=== PATIENT | male | born 1980 | race Caucasian/White ===

== ENCOUNTER 2017-05-20 13:16 | Observation (INO) ==
--- NOTE | 2017-05-20 13:40 | Emergency Department Note ---
Disposition Clinical Impression: Chest pain Qualifiers: Chest pain type: unspecified Qualified Code(s): R07.9 - Chest pain, unspecified Disposition: Admitted As Inpatient Condition: Good Referrals: Jay Saunders DO [Primary Care Provider] - Forms: ED Satisfaction Letter Time of Disposition: 15:37 Chest Pain HPI - General Chief Complaint: ED Chest Pain Stated Complaint: Chest discomfort Time Seen by Provider: 05/20/17 13:36 Source: patient Limitations: no limitations Vital Signs Reviewed: Yes Nursing Notes Reviewed: Yes - History of Present Illness HPI Narrative: 37-year-old previous history of an MN and stent placement who comes in complaining of left-sided chest pain off and on for last 3 days. Pt complaint: chest pain Onset (ago): day(s) Duration: intermittent Onset: during rest Pain Location: left chest Severity: mild, moderate Severity scale (1-10): 3 Quality: tightness, aching Improves with: nothing Worsens with: nothing Associated symptoms: Reports: cough (Some today) Treatments prior to arrival chest pain: none - Related Data Home Medications Medication Instructions Recorded Confirmed Amlodipine Besylate 10 mg PO DAILY 05/20/17 05/20/17 Aspirin [Lo-Dose Aspirin EC] 81 mg PO DAILY 05/20/17 05/20/17 Atorvastatin Calcium 80 mg PO QPM 05/20/17 05/20/17 Carvedilol [Coreg] 25 mg PO BID 05/20/17 05/20/17 Furosemide [Lasix] 20 mg PO DAILY 05/20/17 05/20/17 Insulin DETEMIR [Levemir Flextouch] 25 unit SQ QPM 05/20/17 05/20/17 Isosorbide MONOnitrate (24 HR) 30 mg PO DAILY 05/20/17 05/20/17 [Imdur] Lisinopril [Zestril] 40 mg PO DAILY 05/20/17 05/20/17 Spironolactone [Aldactone] 25 mg PO DAILY 05/20/17 05/20/17 Allergies Allergy/AdvReac Type Severity Reaction Status Date / Time No Known Allergies Allergy Verified 05/20/17 13:25 All systems ED: reviewed and negative except as stated. Constitutional: Denies: fever, chills, weakness, weight change Eyes: Denies: eye pain, eye discharge, vision change ENT ED: Denies: ear pain, throat pain, dental pain, hearing loss, epistaxis, congestion, dysphagia Cardiovascular: Reports: chest pain. Denies: palpitations, dyspnea on exertion , edema, syncope Respiratory: Denies: cough, dyspnea, wheezes, hemoptysis, stridor Gastrointestinal: Denies: abdominal pain, nausea, vomiting, diarrhea, constipation, hematemesis, melena, hematochezia Genitourinary: Denies: urgency, dysuria, frequency, hematuria Musculoskeletal: Denies: back pain, neck pain, arthralgia, myalgia Integumentary: Denies: rash, abrasion, lesions Neurological: Denies: headache, weakness, numbness, paresthesias, confusion, abnormal gait, vertigo Psychiatric: Denies: anxiety, depression, suicidal thoughts, homicidal thoughts , auditory hallucinations, visual hallucinations Endocrine: Denies: fatigue Hematological/Lymphatic: Denies: easy bleeding, easy bruising Allergic/Immunologic: Denies: facial swelling, urticaria Chest Pain PMH - Past Medical History Medical history: Reports: diabetes, hypertension, myocardial infarction Psychiatric history: Reports: no psych history - Social History Smoking Status: Never smoker Alcohol use: Reports: none Drug use: Reports: none Physical Exam - General Limitations: no limitations General appearance: alert, in no apparent distress - Head Head exam: atraumatic, normocephalic, normal inspection - Eye Eye exam: Present: normal appearance, PERRL, EOMI - ENT ENT exam: normal exam, normal oropharynx, mucous membranes moist - Neck Neck exam: Present: normal inspection, full ROM, trachea midline - Chest Chest inspection: Present: normal inspection, symmetric chest wall rise - Respiratory Respiratory exam: Present: normal lung sounds bilaterally - Cardiovascular Cardiovascular exam: Present: regular rate, normal rhythm, normal heart sounds - Abdominal Exam Abdominal exam: Present: soft, Non-Tender. Absent: tenderness, distention, guarding, rebound, rigidity - Extremities Exam Extremities exam: Present: normal inspection, full ROM. Absent: tenderness, pedal edema - Expanded Lower Extremity Exam Neurovascular/Tendon exam: Absent: motor deficit, sensory deficit, tendon deficit - Back Exam Back exam: Present: normal inspection, full ROM. Absent: tenderness - Neurological Exam Neurological exam: Present: alert, oriented X3 - Psychiatric Psychiatric exam: Present: normal affect, normal mood - Skin Skin exam: Present: warm, dry, intact, normal color Course - Reevaluation(s) Reevaluation #1: History 7-year-old with previous stents who comes in complaining of chest pain. Initial EKG no evidence of a STEMI no acute changes, troponin is negative. Patient will be admitted for further evaluation. Time: 15:37 - Consultations Consultation #1: Discussed with , admit. Time: 15:37 Vital Signs Temperature 97.8 F 05/20/17 13:21 Pulse Rate 77 05/20/17 13:21 Respiratory Rate 16 05/20/17 13:21 Blood Pressure 130/90 05/20/17 13:21 O2 Sat by Pulse Oximetry 98 05/20/17 13:21 Temperature 97.8 F 05/20/17 13:21 Pulse Rate 77 05/20/17 13:21 Respiratory Rate 16 05/20/17 13:21 Blood Pressure 130/90 05/20/17 13:21 O2 Sat by Pulse Oximetry 98 05/20/17 13:21 Oxygen Delivery Oxygen Delivery Room Air Chest Pain - Lab Data Lab results reviewed: Yes I reviewed the patient's lab results. Result diagrams: 05/20/17 13:41 05/20/17 13:41 Lab Results 05/20/17 05/20/17 05/20/17 Range/Units 13:41 13:41 13:41 WBC 10.1 (4.3-11.1) K/mcL RBC 5.15 (4.19-5.50) M/mcL Hgb 14.3 (12.9-16.9) g/dL Hct 43.6 (37.5-50.1) % MCV 84.7 (83.0-100.0) fL MCH 27.8 L (28.0-33.3) pg MCHC 32.8 (31.6-35.5) g/dL RDW 12.7 (11.5-14.5) % Plt Count 366 (140-400) K/mcL MPV 11.3 (9.4-12.4) fL Immature Gran % 0.6 (0-4) % Seg Neutrophils % 63.0 % Lymphocytes % 25.7 % Monocytes % 6.1 % Eosinophils % 3.5 % Basophils % 1.1 % Neutrophils # 6.4 (1.6-8.9) K/mcL Lymphocytes # 2.6 (0.6-4.6) K/mcL Monocytes # 0.6 (0.0-1.3) K/mcL Eosinophils # 0.4 (0.0-0.6) K/mcL Basophils # 0.1 (0.0-0.2) K/mcL PT 10.8 (9.4-12.1) Seconds INR 1.0 APTT 28.8 (26.0-36.0) Seconds D-Dimer 236 (0-500) ng/mLFEU Sodium 134 L (136-145) mEq/L Potassium 4.4 (3.5-5.1) mEq/L Chloride 101 (98-107) mEq/L Carbon Dioxide 25 (23-29) mEq/L BUN 15 (6-20) mg/dL Creatinine 1.08 (0.70-1.30) mg/dL Est GFR ( Amer) > 60 (> 60) Est GFR (Non-Af Amer) > 60 (> 60) BUN/Creatinine Ratio 14 (6-26) Glucose 394 H (70-105) mg/dL Calculated Osmolality 295 (280-300) Calcium 8.7 (8.6-10.3) mg/dL Troponin I (< 0.04) ng/mL 05/20/17 Range/Units 13:41 WBC (4.3-11.1) K/mcL RBC (4.19-5.50) M/mcL Hgb (12.9-16.9) g/dL Hct (37.5-50.1) % MCV (83.0-100.0) fL MCH (28.0-33.3) pg MCHC (31.6-35.5) g/dL RDW (11.5-14.5) % Plt Count (140-400) K/mcL MPV (9.4-12.4) fL Immature Gran % (0-4) % Seg Neutrophils % % Lymphocytes % % Monocytes % % Eosinophils % % Basophils % % Neutrophils # (1.6-8.9) K/mcL Lymphocytes # (0.6-4.6) K/mcL Monocytes # (0.0-1.3) K/mcL Eosinophils # (0.0-0.6) K/mcL Basophils # (0.0-0.2) K/mcL PT (9.4-12.1) Seconds INR APTT (26.0-36.0) Seconds D-Dimer (0-500) ng/mLFEU Sodium (136-145) mEq/L Potassium (3.5-5.1) mEq/L Chloride (98-107) mEq/L Carbon Dioxide (23-29) mEq/L BUN (6-20) mg/dL Creatinine (0.70-1.30) mg/dL Est GFR ( Amer) (> 60) Est GFR (Non-Af Amer) (> 60) BUN/Creatinine Ratio (6-26) Glucose (70-105) mg/dL Calculated Osmolality (280-300) Calcium (8.6-10.3) mg/dL Troponin I < 0.03 (< 0.04) ng/mL - Radiology Data Radiology results reviewed: Yes I reviewed the patient's radiology results. Chest X-Ray 05/20/17 13:36 IMPRESSION: No acute findings. D/ / Howard Garay / Howard Garay Interpreting Provider: Howard Garay - EKG Data EKG attestation: Yes I reviewed and interpreted this EKG. EKG shows normal: sinus rhythm Rate: normal Rhythm: NSR [place]/QRS: left axis deviation Interpretation: no acute changes Heart Score - Score History: Moderately Suspicious EKG: Non Specific repolarisation Disturbance Age: Less than 45 Risk Factors: Equal/Greater than 3 risk factor or history of atherosclerotic disease Troponin: Less than normal limit HEART Score Total: 4
[2017-05-20 13:51] LABS: Basophils # 0.1 K/mcL (0.0-0.2); Basophils % 1.1 %; Eosinophils # 0.4 K/mcL (0.0-0.6); Eosinophils % 3.5 %; Hematocrit 43.6 % (37.5-50.1); Hemoglobin 14.3 g/dL (12.9-16.9); Immature Granulocytes % 0.6 % (0-4); Lymphocytes # 2.6 K/mcL (0.6-4.6); Lymphocytes % 25.7 %; Mean Corpuscular HGB Conc 32.8 g/dL (31.6-35.5); Mean Corpuscular Hemoglobin 27.8 pg (28.0-33.3); Mean Corpuscular Volume 84.7 fL (83.0-100.0); Mean Platelet Volume 11.3 fL (9.4-12.4); Monocytes # 0.6 K/mcL (0.0-1.3); Monocytes % 6.1 %; Neutrophils # 6.4 K/mcL (1.6-8.9); Platelet Count 366 K/mcL (140-400); Red Blood Count 5.15 M/mcL (4.19-5.50); Red Cell Distribution Width 12.7 % (11.5-14.5)
[2017-05-20 14:02] LABS: Prothrombin Time 10.8 Seconds (9.4-12.1)
[2017-05-20 14:06] LABS: BUN/Creatinine Ratio 14 (6-26); Blood Urea Nitrogen 15 mg/dL (6-20); Calcium 8.7 mg/dL (8.6-10.3); Carbon Dioxide 25 mEq/L (23-29); Chloride 101 mEq/L (98-107); Glucose 394 mg/dL (70-105); Osmolality,Calculated 295 (280-300); Potassium 4.4 mEq/L (3.5-5.1); Sodium 134 mEq/L (136-145); eGFR For African Americans > 60 (> 60); eGFR For Non-African Americans > 60 (> 60)
[2017-05-20 14:38] LABS: Activated Partial Thrombo Time 28.8 Seconds (26.0-36.0)
[2017-05-20] MEDS ORDERED: Naloxone 0.4 MG/ML INJ IVP PRN (16:39)
[2017-05-20] MEDS ORDERED: Acetaminophen 325 MG TABLET PO PRN (16:39)
--- NOTE | 2017-05-20 16:40 | Internal Med History&Physical ---
<MineshJeyAlexandra J - Last Filed: 05/20/17 16:44> Date of Encounter: 05/20/17 Time of Encounter: 16:44 Assessment and Plan (1) CAD (coronary artery disease) Status: Acute per hx. S/p PCI 08/2015 at [facility]. Now with intermittent chest pain for 2 days prior to presentation. Took ASA prior to arrival. No chest pain at time of the admission, denies shortness of breath. Initial troponin negative, EKG without acute ST changes. Cycle troponin, check echo. Consult cardiology given his young age and cardiac history. Continue home ASA, BB, statin. BNP, echo pending Qualifiers: Coronary Disease-Associated Artery/Lesion type: [place] artery [place] vs. transplanted heart: [place] heart Associated angina: with unstable angina Qualified Code(s): I25.110 - Atherosclerotic heart disease of [place] coronary artery with unstable angina pectoris (2) Hypertension Status: Acute per hx. BP controlled. Cont home BP medication. Monitor BP and titrate PRN Qualifiers: Hypertension type: essential hypertension Qualified Code(s): I10 - Essential (primary) hypertension (3) Diabetes Status: Acute per hx. control unknown. Add SSI. Monitor blood sugar and titrate PRN. Hgb A1c pending Qualifiers: Diabetes mellitus type: type 2 Diabetes mellitus complication status: without complication Diabetes mellitus [facility] insulin use: with termite control technician use Qualified Code(s): E11.9 - Type 2 diabetes mellitus without complications ; Z79.4 - watermaster (current) use of insulin; Z79.4 - [facility] (current) use of insulin; Z79.4 - [facility] (current) use of insulin; Z79.4 - watermaster ( current) use of insulin (4) DVT prophylaxis Status: Acute [facility] Internal Medicine - H&P: HPI Chief complaint: chest pain Admitted From: Home Plans for Post Hospital Care: Home History of present illness: Mr. Forte is a 37 year old male with PMH CAD, hypertension and diabetes who presented to [facility] on 05/21/2017 with complaints of chest pain. His placed in observation status for ACS rule out. Information obtained from chart review and patient report. Patient reports intermittent chest pain for the past 2 days. Localizes to left side of chest and radiates to left shoulder and down left side. Describes pain as a discomfort. Nothing makes it better or worse. Denies shortness of breath. No trauma or repetitive heavy lifting. Past Med Surg Social Fam HX - Past Medical History Medical history: diabetes, hypertension, myocardial infarction Psychiatric history: no psych history - Past Surgical History Surgical History: angioplasty/stent - Social History Smoking Status: Never smoker Smokeless Tobacco Status: No Alcohol use: none Drug use: none - Additional Family History Additional family history: Reviewed and noncontributory Internal Medicine - H&P: Meds Amlodipine Besylate 10 mg PO DAILY 05/20/17 [History] Aspirin [Lo-Dose Aspirin EC] 81 mg PO DAILY 05/20/17 [History] Atorvastatin Calcium 80 mg PO QPM 05/20/17 [History] Carvedilol [Coreg] 25 mg PO BID 05/20/17 [History] Furosemide [Lasix] 20 mg PO DAILY 05/20/17 [History] Isosorbide MONOnitrate (24 HR) [Imdur] 30 mg PO DAILY 05/20/17 [History] Lisinopril [Zestril] 40 mg PO DAILY 05/20/17 [History] Spironolactone [Aldactone] 25 mg PO DAILY 05/20/17 [History] Insulin DETEMIR [Levemir] 35 unit SQ HS [id number] 05/23/17 [Rx] 3 Allergy/AdvReac Type Severity Reaction Status Date / Time No Known Allergies Allergy Verified 05/23/17 23:31 All Systems PM: A 10-system review of systems was performed and is negative for pertinent findings except as documented above in the HPI. - Constitutional Constitutional: no chills, no fever(s), no night sweats - EENT Eyes: no change in vision, no discharge, no pain, no photophobia Ears: no ear discharge, no ear pain, no tinnitus Nose, mouth and throat: no dysphagia, no nasal discharge, no neck pain, no sore throat - Cardiovascular Cardiovascular ROS IM: chest pain, no diaphoresis, no dyspnea, no lightheadedness, no palpitations, no syncope - Respiratory Respiratory: no cough, no dyspnea, no wheezing, no excessive phlegm production - Gastrointestinal Gastrointestinal: no abdominal pain, no diarrhea, no hematemesis, no hematochezia, no melena, no nausea, no vomiting - Musculoskeletal Musculoskeletal ROS IM: no numbness, no tingling - Integumentary Integumentary IM: no rash, no unusual bruising - Neurological Neurological ROS: no confusion, no convulsions, no focal weakness, no numbness, no tingling, no tremor(s) - Hematologic/Lymphatic Hematologic/Lymphatic: no easy bruising - Constitutional Vitals: Temp Pulse Resp BP Pulse Ox 97.8 F 77 16 125/84 98 05/20/17 13:21 05/20/17 13:21 05/20/17 16:20 05/20/17 16:20 05/20/17 13:21 General appearance: Present: A&O X 3, morbidly obese - Head Head exam: Present: atraumatic, normocephalic - Eye Eye exam: Present: PERRL, conjuntiva pink, sclera anicteric Pupils: Present: PERRL - Neck Neck exam general surgery: Present: supple, trachea midline. Absent: lymphadenopathy - Respiratory Respiratory exam: Present: CTAB. Absent: accessory muscle use, rales, rhonchi, wheezes - Cardiovascular Cardiovascular exam: Present: RRR, +S1, +S2. Absent: diastolic murmur, gallop, rubs, systolic murmur - GI/Abdominal GI/Abdominal exam: Present: normal bowel sounds, soft, no peritoneal signs. Absent: distended, tenderness - Extremities Exam Extremities exam: Present: warm, radial pulses palpable and symmetrical. Absent : calf tenderness, cyanotic, pedal edema - Neurological Exam Neurological exam: Present: CN II-XII intact, oriented X3, no focal deficits. Absent: pronater drift, facial droop, speech deficit - Skin Skin exam: Present: dry, intact Internal Med - H&P Results - Labs CBC & Chem 7: 05/20/17 13:41 05/20/17 13:41 <Leticia Rivera Z - Last Filed: 06/20/17 09:48> Date of Encounter: 06/20/17 Internal Medicine - H&P: HPI History of present illness: Mr. Forte is a 37 year old male All Systems PM: A 10-system review of systems was performed and is negative for pertinent findings except as documented above in the HPI. - Constitutional Vitals: Temp Pulse Resp BP Pulse Ox 98.1 F 96 16 132/82 94 05/23/17 11:07 05/23/17 11:07 05/23/17 11:07 05/23/17 11:07 05/23/17 11:07 Internal Med - H&P Results - Labs CBC & Chem 7: 05/21/17 00:35 05/21/17 00:35 - Impressions ITS Impressions Echocardiogram 05/20/17 16:42 Impressions: LVEF 55-60%. Normal left ventricular structure and function. Normal right ventricular size and function. No significant valvular dysfunction. No pulmonary hypertension. Left Ventricular Wall Motion: Rest Echo Findings The mid inferior lateral and basal inferior lateral yoo were not visualized. All other wall segments showed normal motion. Findings: Study Quality * Technically adequate exam. ECG Findings * Normal sinus rhythm. Left Ventricle * LVEF 55-60%. * Indeterminate diastolic function. Valsalva not performed. * Normal LV size and wall thickness. Right Ventricle * Normal right ventricular structure and function. Left Atrium * Normal left atrial size. Right Atrium * Normal right atrial size. Aortic Valve * No aortic regurgitation. * Aortic valve not well visualized. * No aortic stenosis. Mitral Valve * No mitral regurgitation. * Normal mitral valve structure. * No mitral stenosis. Tricuspid Valve * Tricuspid valve not well visualized. * No tricuspid regurgitation. * Estimated RA pressure is 3 mmHg. Pulmonic Valve * Pulmonic valve is not well visualized. * No pulmonic stenosis. * No pulmonic regurgitation. Pulmonary Artery * Pulmonary artery not well visualized. Aorta * Normally sized aortic root. Pericardium * There is no pericardial effusion present. Interatrial Septum * Interatrial septum not well evaluated. IVC * Normal IVC dimensions and inspiratory collapse. - Attending Attestation I personally and independently interviewed and examined the patient with OIM CONSULTANT, and I reviewed the patient's medical record with her. I am in agreement with the assessment and proposed treatment plan. I discussed my findings and recommendation with the patient and answer all questions. The patient's medical records were edited to accurately reflect this encounter.
[2017-05-20] MEDS ORDERED: *HR* Dextrose 50 % in Water (Syg) 50 ML SYRINGE IVP PRN (16:41)
[2017-05-20] MEDS ORDERED: D5% in Water 1,000 ML IVC PRN (16:41)
[2017-05-20] MEDS ORDERED: Dextrose Gel 15 GM/37.5 ML TUBE PO PRN ×2 (16:41)
[2017-05-20] MEDS: Insulin LISPRO 300 UNITS/3 ML VIAL SQ SCH (21:50)
[2017-05-21 01:31] LABS: Basophils # 0.1 K/mcL (0.0-0.2); Basophils % 0.9 %; Eosinophils # 0.4 K/mcL (0.0-0.6); Eosinophils % 3.3 %; Hematocrit 41.3 % (37.5-50.1); Hemoglobin 13.6 g/dL (12.9-16.9); Immature Granulocytes % 0.5 % (0-4); Immature Platelets 9.4 % (1.1-6.1); Lymphocytes # 3.8 K/mcL (0.6-4.6); Lymphocytes % 35.1 %; Mean Corpuscular HGB Conc 32.9 g/dL (31.6-35.5); Mean Corpuscular Volume 85.2 fL (83.0-100.0); Mean Platelet Volume 11.6 fL (9.4-12.4); Monocytes # 0.7 K/mcL (0.0-1.3); Monocytes % 6.7 %; Neutrophils # 5.9 K/mcL (1.6-8.9); Platelet Count 357 K/mcL (140-400); Red Blood Count 4.85 M/mcL (4.19-5.50); Red Cell Distribution Width 12.7 % (11.5-14.5); Segmented Neutrophils % 53.5 %
[2017-05-21 01:40] LABS: Hemoglobin A1C 13.3 %
[2017-05-21 01:46] LABS: BUN/Creatinine Ratio 16 (6-26); Blood Urea Nitrogen 17 mg/dL (6-20); Calcium 9.3 mg/dL (8.6-10.3); Carbon Dioxide 25 mEq/L (23-29); Chloride 102 mEq/L (98-107); Chol/HDL Ratio 6.8 (0-4.9); Cholesterol 226 mg/dL (< 200); Glucose 351 mg/dL (70-105); HDL Cholesterol 33 mg/dL (40-59); Osmolality,Calculated 296 (280-300); Potassium 3.9 mEq/L (3.5-5.1); Sodium 135 mEq/L (136-145); Triglycerides 450 mg/dL (< 150); eGFR For African Americans > 60 (> 60); eGFR For Non-African Americans > 60 (> 60)
[2017-05-21] MEDS: *HR* Enoxaparin 40 MG/0.4 ML SYRINGE SQ SCH (05:59)
[2017-05-21] MEDS: Isosorbide MONOnitrate (24 HR) 30 MG TAB.ER.24H PO SCH (08:17)
[2017-05-21] MEDS: Furosemide 20 MG TABLET PO SCH (08:17)
[2017-05-21] MEDS: Aspirin Enteric Coated 81 MG Tablet PO SCH (08:17)
[2017-05-21] MEDS: Lisinopril 20 MG TABLET PO SCH (08:17)
[2017-05-21] MEDS: Spironolactone 25 MG TABLET PO SCH (08:17)
[2017-05-21] MEDS: amLODIPine 5 MG TABLET PO SCH (08:17)
[2017-05-21] MEDS: Insulin LISPRO 300 UNITS/3 ML VIAL SQ SCH ×4 (08:18→22:15)
[2017-05-21] MEDS ORDERED: Ondansetron 4 MG/2 ML VIAL IVP PRN (13:11)
--- NOTE | 2017-05-21 14:24 | Internal Med Progress Note ---
Date of Encounter: 05/21/17 Time of Encounter: 14:22 - Assessment and plan (1) CAD (coronary artery disease) Current Visit: Yes Status: Acute Assessment and plan: per hx. S/p PCI 08/2015 at [facility]. Now with intermittent chest pain for 2 days prior to presentation. Took ASA prior to arrival. No chest pain at time of the admission, denies shortness of breath. Serial troponin negative, EKG without acute ST changes. TTE with EF 55%, indeterminate diastolic dysfunction , normal systolic function. Stress test pending. Consult cardiology if needed. Continue home ASA, statin, BB, Qualifiers: Coronary Disease-Associated Artery/Lesion type: [place] artery [place] vs. transplanted heart: [place] heart Associated angina: with unstable angina Qualified Code(s): I25.110 - Atherosclerotic heart disease of [place] coronary artery with unstable angina pectoris (2) Hypertension Current Visit: Yes Status: Acute Assessment and plan: per hx. BP controlled. Cont home BP medications. Monitor BP and titrate PRN Qualifiers: Hypertension type: essential hypertension Qualified Code(s): I10 - Essential (primary) hypertension (3) Diabetes Current Visit: Yes Status: Acute Assessment and plan: uncontrolled. Hgb A1c 13.3%. Home long-acting increased. Continue SSI. 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 Patient said he had an uneventful night, slept well. No chest pain or shortness of breath recurrence. [facility] records obtained and reviewed; TTE 08/2015 showed EF of 20-25%. [facility] we will attempt to obtain his records. - Constitutional Vitals: Temp Pulse Resp BP Pulse Ox 97.8 F 78 18 94/59 94 05/21/17 11:00 05/21/17 11:00 05/21/17 11:00 05/21/17 11:00 05/21/17 11:00 General appearance: Present: A&O X 3, morbidly obese - Head Head exam: Present: atraumatic, normocephalic - Eye Eye exam: Present: PERRL, conjuntiva pink, sclera anicteric Pupils: Present: PERRL - Neck Neck exam general surgery: Present: supple, trachea midline. Absent: lymphadenopathy - Respiratory Respiratory exam: Present: CTAB. Absent: accessory muscle use, rales, rhonchi, wheezes - Cardiovascular Cardiovascular exam: Present: RRR, +S1, +S2. Absent: diastolic murmur, gallop, rubs, systolic murmur - GI/Abdominal GI/Abdominal exam: Present: normal bowel sounds, soft, no peritoneal signs. Absent: distended, tenderness - Extremities Exam Extremities exam: Present: warm, radial pulses palpable and symmetrical. Absent : calf tenderness, cyanotic, pedal edema - Neurological Exam Neurological exam: Present: CN II-XII intact, oriented X3, no focal deficits. Absent: pronater drift, facial droop, speech deficit - Skin Skin exam: Present: dry, intact Internal Medicine: Result - Labs CBC & Chem 7: 05/21/17 00:35 05/21/17 00:35 Labs: Short CBC 05/21/17 Range/Units 00:35 WBC 11.0 (4.3-11.1) K/mcL Hgb 13.6 (12.9-16.9) g/dL Hct 41.3 (37.5-50.1) % Plt Count 357 (140-400) K/mcL Neutrophils # 5.9 (1.6-8.9) K/mcL BMP 05/21/17 00:35 Sodium 135 L Potassium 3.9 Chloride 102 Carbon Dioxide 25 BUN 17 Creatinine 1.04 Glucose 351 H Calcium 9.3 Cardiac Enzymes 05/20/17 05/21/17 Range/Units 19:09 00:35 Troponin I < 0.03 < 0.03 (< 0.04) ng/mL - ABG Interpretation ABG results: PT/INR, D-dimer PT 10.8 Seconds (9.4-12.1) 05/20/17 13:41 D-Dimer 236 ng/mLFEU (0-500) 05/20/17 13:41 - Impressions Impressions Echocardiogram 05/20/17 16:42 Impressions: LVEF 55-60%. Normal left ventricular structure and function. Normal right ventricular size and function. No significant valvular dysfunction. No pulmonary hypertension. Left Ventricular Wall Motion: Rest Echo Findings The mid inferior lateral and basal inferior lateral yoo were not visualized. All other wall segments showed normal motion. Findings: Study Quality * Technically adequate exam. ECG Findings * Normal sinus rhythm. Left Ventricle * LVEF 55-60%. * Indeterminate diastolic function. Valsalva not performed. * Normal LV size and wall thickness. Right Ventricle * Normal right ventricular structure and function. Left Atrium * Normal left atrial size. Right Atrium * Normal right atrial size. Aortic Valve * No aortic regurgitation. * Aortic valve not well visualized. * No aortic stenosis. Mitral Valve * No mitral regurgitation. * Normal mitral valve structure. * No mitral stenosis. Tricuspid Valve * Tricuspid valve not well visualized. * No tricuspid regurgitation. * Estimated RA pressure is 3 mmHg. Pulmonic Valve * Pulmonic valve is not well visualized. * No pulmonic stenosis. * No pulmonic regurgitation. Pulmonary Artery * Pulmonary artery not well visualized. Aorta * Normally sized aortic root. Pericardium * There is no pericardial effusion present. Interatrial Septum * Interatrial septum not well evaluated. IVC * Normal IVC dimensions and inspiratory collapse. Consult Discharge Plan - Plan Referrals: Jay Saunders DO [Primary Care Provider] -
--- NOTE | 2017-05-21 20:03 | Electrocardiograph Report ---
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
[2017-05-21] MEDS: Insulin DETEMIR 100 UNIT/ML X5UNITS SQ SCH (22:16)
[2017-05-22] MEDS: *HR* Enoxaparin 40 MG/0.4 ML SYRINGE SQ SCH (05:26)
[2017-05-22] MEDS ORDERED: Regadenoson 0.4 MG/5 ML SYRINGE IVP ONE (06:09)
[2017-05-22] MEDS: Insulin LISPRO 300 UNITS/3 ML VIAL SQ SCH ×4 (09:42→20:53)
[2017-05-22] MEDS: amLODIPine 5 MG TABLET PO SCH (09:42)
[2017-05-22] MEDS: Aspirin Enteric Coated 81 MG Tablet PO SCH (09:42)
[2017-05-22] MEDS: Isosorbide MONOnitrate (24 HR) 30 MG TAB.ER.24H PO SCH (09:42)
[2017-05-22] MEDS: Spironolactone 25 MG TABLET PO SCH (09:42)
[2017-05-22] MEDS: Furosemide 20 MG TABLET PO SCH (09:42)
[2017-05-22] MEDS: Lisinopril 20 MG TABLET PO SCH (09:42)
--- NOTE | 2017-05-22 14:25 | Internal Med Progress Note ---
Date of Encounter: 05/22/17 Time of Encounter: 09:45 - Assessment and plan (1) CAD (coronary artery disease) Current Visit: Yes Status: Acute Assessment and plan: per hx. S/p PCI 08/2015 at [facility]. Now with intermittent chest pain for 2 days prior to presentation. Took ASA prior to arrival. No chest pain at time of the admission, denies shortness of breath. Serial troponin negative, EKG without acute ST changes. TTE with EF 55%, indeterminate diastolic dysfunction , normal systolic function. Stress test pending. Consult cardiology if needed. Continue home ASA, statin, BB, Qualifiers: Coronary Disease-Associated Artery/Lesion type: [place] artery [place] vs. transplanted heart: [place] heart Associated angina: with unstable angina Qualified Code(s): I25.110 - Atherosclerotic heart disease of [place] coronary artery with unstable angina pectoris (2) Hypertension Current Visit: Yes Status: Acute Assessment and plan: per hx. BP controlled. Cont home BP medications. Monitor BP and titrate PRN Qualifiers: Hypertension type: essential hypertension Qualified Code(s): I10 - Essential (primary) hypertension (3) Diabetes Current Visit: Yes Status: Acute Assessment and plan: uncontrolled. Hgb A1c 13.3%. Home long-acting increased. Continue SSI. Monitor blood sugar and titrate PRN. 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 No chest pain or shortness of breath recurrence. Discussed diabetes control with him and he reports recent increase in home stressors and has not been watching diet as he normally would do. He is agreeable to increase long-acting insulin. - Constitutional Vitals: Temp Pulse Resp BP Pulse Ox 98.1 F 77 18 112/74 95 05/22/17 10:52 05/22/17 10:52 05/22/17 10:52 05/22/17 10:52 05/22/17 10:52 General appearance: Present: A&O X 3, morbidly obese - Head Head exam: Present: atraumatic, normocephalic - Eye Eye exam: Present: PERRL, conjuntiva pink, sclera anicteric Pupils: Present: PERRL - Neck Neck exam general surgery: Present: supple, trachea midline. Absent: lymphadenopathy - Respiratory Respiratory exam: Present: CTAB. Absent: accessory muscle use, rales, rhonchi, wheezes - Cardiovascular Cardiovascular exam: Present: RRR, +S1, +S2. Absent: diastolic murmur, gallop, rubs, systolic murmur - GI/Abdominal GI/Abdominal exam: Present: normal bowel sounds, soft, no peritoneal signs. Absent: distended, tenderness - Extremities Exam Extremities exam: Present: warm, radial pulses palpable and symmetrical. Absent : calf tenderness, cyanotic, pedal edema - Neurological Exam Neurological exam: Present: CN II-XII intact, oriented X3, no focal deficits. Absent: pronater drift, facial droop, speech deficit - Skin Skin exam: Present: dry, intact Internal Medicine: Result - Labs CBC & Chem 7: 05/21/17 00:35 05/21/17 00:35 - ABG Interpretation ABG results: PT/INR, D-dimer PT 10.8 Seconds (9.4-12.1) 05/20/17 13:41 D-Dimer 236 ng/mLFEU (0-500) 05/20/17 13:41 Consult Discharge Plan - Plan Referrals: Jay Saunders DO [Primary Care Provider] - 05/27/17 1:00 pm
--- NOTE | 2017-05-22 16:10 | Electrocardiograph Report ---
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
[2017-05-22] MEDS: Insulin DETEMIR 100 UNIT/ML X5UNITS SQ SCH (20:53)
[2017-05-23] MEDS: *HR* Enoxaparin 40 MG/0.4 ML SYRINGE SQ SCH (05:48)
[2017-05-23] MEDS: Insulin LISPRO 300 UNITS/3 ML VIAL SQ SCH ×2 (08:36→11:52)
[2017-05-23] MEDS: Isosorbide MONOnitrate (24 HR) 30 MG TAB.ER.24H PO SCH (08:37)
[2017-05-23] MEDS: amLODIPine 5 MG TABLET PO SCH (08:37)
[2017-05-23] MEDS: Furosemide 20 MG TABLET PO SCH (08:37)
[2017-05-23] MEDS: Aspirin Enteric Coated 81 MG Tablet PO SCH (08:37)
[2017-05-23] MEDS: Spironolactone 25 MG TABLET PO SCH (08:37)
[2017-05-23] MEDS: Lisinopril 20 MG TABLET PO SCH (08:38)
--- NOTE | 2017-05-23 10:37 | Discharge Summary ---
Date of Encounter: 05/23/17 Time of Encounter: 10:30 - Discharge Diagnosis (1) CAD (coronary artery disease) Priority: Primary Status: Acute Comments: per hx. S/p PCI with SUNDAY to pLAD 08/2015 at [facility]. Now with intermittent chest pain for 2 days prior to presentation. ASA given prior to arrival. No chest pain at time of presentation, no shortness of breath. Serial troponin negative , EKG without acute ST changes. TTE with EF 55%, indeterminate diastolic dysfunction, normal systolic function. 05/22/2017 stress test mild to moderate perfusion defect involving the basal-mid inferior lateral wall representing reversible ischemia. Discussed with cardiology who is recommending [facility]. Patient request to be transferred to [facility]. No chest pain at time of discharge. Continue home ASA, statin, BB, nitrate Qualifiers: Coronary Disease-Associated Artery/Lesion type: [place] artery [place] vs. transplanted heart: [place] heart Associated angina: with unstable angina Qualified Code(s): I25.110 - Atherosclerotic heart disease of [place] coronary artery with unstable angina pectoris (2) Chronic systolic (congestive) heart failure Priority: Primary Status: Chronic Comments: 08/2015 TTE with EF 25%, thought to be hypertensive cardiomyopathy at that time. 05/21/2017 TTE with EF 55%, indeterminate diastolic dysfunction. Appears euvolemic. Cont home Lasix, ROSALINA, BB, spironolactone (3) Hypertension Priority: Primary Status: Acute Comments: per hx. BP soft/borderline at times but overall controlled. Cont home BP medications. Qualifiers: Hypertension type: essential hypertension Qualified Code(s): I10 - Essential (primary) hypertension (4) Diabetes Priority: Primary Status: Acute Comments: uncontrolled. Hgb A1c 13.3%. Home long-acting increased. Blood sugars variable but overall improved with increasing home long-acting insulin. 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 total cholesterol 226, triglycerides 450 (both elevated from 08/2015). Patient reports dietary noncompliance. Continue home statin. - Discharge Medications Home Medications: Amlodipine Besylate 10 mg PO DAILY 05/20/17 [History] Aspirin [Lo-Dose Aspirin EC] 81 mg PO DAILY 05/20/17 [History] Atorvastatin Calcium 80 mg PO QPM 05/20/17 [History] Carvedilol [Coreg] 25 mg PO BID 05/20/17 [History] Furosemide [Lasix] 20 mg PO DAILY 05/20/17 [History] Isosorbide MONOnitrate (24 HR) [Imdur] 30 mg PO DAILY 05/20/17 [History] Lisinopril [Zestril] 40 mg PO DAILY 05/20/17 [History] Spironolactone [Aldactone] 25 mg PO DAILY 05/20/17 [History] Insulin DETEMIR [Levemir] 35 unit SQ HS [id number] 05/23/17 [Rx] Allergies/Adverse Reactions: 3 Allergy/AdvReac Type Severity Reaction Status Date / Time No Known Allergies Allergy Verified 05/20/17 13:25 Procedures/tests Complete & Pending: Procedures Performed prior 72 hours Category Date Time Status NM nicole perf SPECT multi [NM] Routine Exams 05/21/17 08:02 Taken ECG 12 lead ECG [ECG] Routine Y 05/20/17 13:44 Completed EV echocardiogram Routine Y 05/20/17 16:42 Completed SP pharm nuclear stress Routine Y 05/22/17 08:22 Completed Date of admission: 05/20/17 15:49 Primary care physician: Jay Saunders DO Discharging clinician: Alexandra Edge Anticipated date of discharge: 05/23/17 - Patient Status Disposition: Transfer Other Condition: Good Overall status at discharge: patient is back to baseline - Discharge Instructions Follow Up With: Jay Saunders DO [Primary Care Provider] - 05/27/17 1:00 pm - Diet and Activity Diet: diabetic diet, low fat, low cholesterol Interval History: Seen and examined at bedside, eventful night. No chest pain or shortness of breath recurrence. Discussed stress test with him and cardiology's recommendation for left heart catheterization and patient prefers to be transferred to [facility] where he had last C. Spoke with [facility] transfer center and patient will be directly admitted to [place] when bed is available. Patient is agreeable to transfer Hospital course: See assessment and plan for hospital course - Time Spent with Patient Total time spent providing and/or coordinating discharge services: - Constitutional Vitals: Temp Pulse Resp BP Pulse Ox 98.1 F 72 20 103/70 95 05/23/17 07:44 05/23/17 07:44 05/23/17 07:44 05/23/17 07:44 05/23/17 07:44 General appearance: Present: A&O X 3, morbidly obese - Head Head exam: Present: atraumatic, normocephalic - Eye Eye exam: Present: PERRL, conjuntiva pink, sclera anicteric Pupils: Present: PERRL - Neck Neck exam general surgery: Present: supple, trachea midline. Absent: lymphadenopathy - Respiratory Respiratory exam: Present: CTAB. Absent: accessory muscle use, rales, rhonchi, wheezes - Cardiovascular Cardiovascular exam: Present: RRR, +S1, +S2. Absent: diastolic murmur, gallop, rubs, systolic murmur - GI/Abdominal GI/Abdominal exam: Present: normal bowel sounds, soft, no peritoneal signs. Absent: distended, tenderness - Extremities Exam Extremities exam: Present: warm, radial pulses palpable and symmetrical. Absent : calf tenderness, cyanotic, pedal edema - Neurological Exam Neurological exam: Present: CN II-XII intact, oriented X3, no focal deficits. Absent: pronater drift, facial droop, speech deficit - Skin Skin exam: Present: dry, intact
[2017-05-23 11:09] VITALS: BP 132/82
== END 2017-05-23 14:20 | disposition other institution (70) ==
LOC: 3BNU 13:16 → EMEROO 13:16 → 3BNU 16:22
PROVIDERS: ADMIT Internal Medicine Nephrology; ATTEND Registered Nurse